=== PATIENT | female | born 1960 | race Caucasian/White ===

== ENCOUNTER 2016-02-18 08:49 | Emergency (ER) ==
[2016-02-18 08:53] VITALS: BP 127/88; TEMP 97.3; BMI 29.7
--- NOTE | 2016-02-18 08:55 | ED.PDOC ---
General ED Provider: Dr. ZULMA ARCHER JR Chief Complaint: Headache Stated Complaint: SPONTANEOUS FRONTAL HEADACHE WITH NAUSEA AND PHOTOPHOBIA patient c/o headache to frontal area. states it has made her nauseated. states does feel like sinuses are acting up.[End]since 2329 97.3 76 20 95% 127/ 88 07/19 SINCE 2329 Time Seen by Physician: 08:56 Mode of Arrival: Walk-In Information Source: Patient Exam Limitations: No limitations Primary Care Provider: LEONARDO IRVIN Nursing and Triage Documentation Reviewed and Agree: No Review of Systems - Review Of Systems Constitutional: Reports: Malaise Eyes: Reports: Photophobia Ears, Nose, Mouth, Throat: Reports: Nose pain (SINUS "FRONTAL PAIN") Respiratory: Reports: No symptoms Cardiac: Reports: No symptoms GI: Reports: No symptoms : Reports: No symptoms Musculoskeletal: Reports: No symptoms Skin: Reports: No symptoms Neurological: Reports: Headache Endocrine: Reports: No symptoms Hematologic/Lymphatic: Reports: No symptoms All Other Systems: Other Past Medical History - Past Medical History Endocrine: Reports: Hypothyroid, Dyslipidemia Cardiovascular: Reports: Unknown Respiratory: Reports: None Hematological: Reports: None Gastrointestinal: Reports: None Genitourinary: Reports: None 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) Musculoskeletal: Reports: None, Other (NEURONTIN NEEDED FOR LEG PAIN) Cancer: Reports: None - Surgical History General Surgical History: Reports: Tubal ligation - Family History Family History: Reports: Unknown - Social History Smoking Status: Current some day smoker Amount Smokes or Chewing Tobacco Used Daily: 1PK Q 3 D Hx Substance Use: No Alcohol Screening: Occasionally Physical Exam - Physical Exam Appearance: Well-appearing Pain Distress: Moderate Eyes: JOSE D, EOMI, Conjunctiva clear ENT: Nose normal (LEFT SEROUS EFFUSION LEFT FRONTAL TENDERNESS), Oropharynx normal Neck: Supple Respiratory: Airway patent, Breath sounds clear, Breath sounds equal, Respirations nonlabored Cardiovascular: RRR, Pulses normal, No rub, No murmur GI/: Soft, Nontender, No masses, Bowel sounds normal, No Organomegaly Musculoskeletal: Normal strength, ROM intact, No edema, No calf tenderness Skin: Warm, Dry, Normal color Neurological: Sensation intact, Motor intact, Reflexes intact, Cranial nerves intact, Alert, Oriented Psychiatric: Affect appropriate, Mood appropriate Interpretation - Radiology Interpretation Radiology Interpretation By: Radiologist Radiology Results: No acute changes Exam Interpreted: CT Scan (SINUSESW POSSIBLE RIGHT MASTOID EFFUSION//NORMAL CT HEAD) Re-Evaluation - Re-Evaluation Time of Re-Evaluation: 12:15 Status: Improved (pain resolved but worse when gets up) Critical Care Note - Critical Care Note Total Time (mins): 5 Course - Course Orders, Labs, Meds: Orders Category Date Time Status Morphine Sulfate [Morphine 4 mg/ml Syringe] MEDS 02/18/16 10:25 Discontinued 4 mg IM ONCE STA Promethazine HCl [Phenergan 25 mg/ml Vial] MEDS 02/18/16 10:25 Discontinued 25 mg IM ONCE STA Sumatriptan Succinate [Imitrex] MEDS 02/18/16 09:06 Discontinued [address] CT HEAD W/O CONTRAST Stat RADS 02/18/16 09:[address] MAXILLOFACIAL W/O CONTRAST Stat RADS 02/18/16 09:11 Completed Medications Discontinued Medications Generic Name Dose Route Start Last Admin Trade Name Freq PRN Reason Stop Dose Admin Morphine Sulfate 4 mg 02/18/16 10:25 02/18/16 10:50 Morphine 4 Mg/Ml Syringe IM 02/18/16 10:26 4 mg ONCE STA Administration Promethazine HCl 25 mg 02/18/16 10:25 02/18/16 10:51 Phenergan 25 Mg/Ml Vial IM 02/18/16 10:26 25 mg ONCE STA Administration Sumatriptan Succinate 6 mg 02/18/16 09:06 02/18/16 09:13 Imitrex SUBCUT 02/18/16 09:07 6 mg ONCE STA Administration Vital Signs: Temp Pulse Resp BP Pulse Ox 02/18/16 08:51 97.3 F L 76 20 127/88 95 Departure - Departure Time of Disposition: 12:15 Disposition: HOME SELF-CARE Discharge Problem: Headache Instructions: Acute Headache (ED) Condition: Good Pt referred to PMD for follow-up: Yes Additional Instructions: pain medication only as needed recheck PMD one week discuss headaches may take antihistamine daily with sinus congestion noted on CT increase fluids rest for one day retur if fever over 101.0 if symptoms worse Prescriptions: Hydrocodone Bit/Acetaminophen [[place]ing 5-325] 1 - 2 tab PO Q6HR PRN #12 tablet PRN Reason: pain Allergies/Adverse Reactions: Allergies Penicillins Adverse Reaction (Verified 02/18/16 08:54) Home Medications: Ambulatory Orders Venlafaxine HCl [Effexor] 75 mg PO DAILY 12/06/13 Gabapentin 300 mg PO BEDTIME 02/18/16 Hydrocodone Bit/Acetaminophen [Fielding 5-325] 1 - 2 tab PO Q6HR PRN #12 tablet 10/26 Levothyroxine Sodium [Synthroid] 50 mcg PO QDAC 02/18/16
[2016-02-18] MEDS ORDERED: IMITREX SUBCUT STA (09:06)
--- NOTE | 2016-02-18 10:04 | CT ---
EXAM: CT of the head without contrast History: Acute left sided headache. Technique: Multiplanar CT images through the head were obtained without the administration of IV co ntrast Findings: The visualized paranasal sinuses and left mastoid air cells are clear in general. Small right mastoid effusion. No acute calvarial abnormalities. Nasal septum is bowed to the left. Intracranially the ventricular and cisternal spaces are normal in size, shape and configuration for a patient of this age. No dominant mass or midline shift. No hydrocephalous. No acute intracrania l hemorrhage or abnormal extraaxial fluid collections. Impression: 1. No acute intracranial process. 2. Small right mastoid effusion.
--- NOTE | 2016-02-18 10:13 | CT ---
EXAM: CT sinuses/facial bones without contrast HISTORY: Headache and left frontal tenderness COMPARISON: Same day CT head TECHNIQUE: Serial axial images of the facial bones/sinuses were obtained without IV contrast. Thes e were viewed in coronal, sagittal and axial planes. FINDINGS: The mandible and pterygoid plates are intact. There is significant leftward nasal septal deviation with a 0.4 cm leftward nasal septal spur. There is mild scattered mucosal thickening in the paranasal sinuses with no CT evidence of acute sinusitis. Ostiomeatal units are patent bilatera lly. Nasal turbinates are unremarkable. There is no facial bone fracture or acute abnormality. Th ere is minimal scattered right mastoid fluid. The soft tissues are unremarkable. IMPRESSION: 1. No CT evidence of sinusitis with minimal mucosal thickening. 2. Ostiomeatal units are patent with significant leftward nasal septal deviation and nasal septal s pur. 3. No acute facial bone osseous abnormality. 4. Minimal scattered fluid in the right mastoid air cells.
[2016-02-18] MEDS ORDERED: PHENERGAN 25 MG/ML VIAL IM STA (10:25)
[2016-02-18] MEDS ORDERED: MORPHINE 4 MG/ML SYRINGE IM STA (10:25)
== END 2016-02-18 12:20 | disposition home or self-care (01) ==
LOC: ED 08:49
DX: R51 Headache (principal); F17.210 Nicotine dependence, cigarettes, uncomplicated
CPT/HCPCS: 96372; 99283

== ENCOUNTER 2017-06-15 15:19 | Outpatient (CLI) ==
--- NOTE | 2017-06-16 07:34 | DI ---
EXAM: Two views of the pelvis. History: Right hip pain. Findings: No acute fracture or dislocation. Degenerative disc disease within the lower lumbar spine . Mild narrowing of bilateral hip joints with tiny osteophytes. Impression: 1. No acute osseous abnormality. 2. Mild arthritis of bilateral hip joints
== END 2017-06-15 15:20 | disposition home or self-care (01) ==
LOC: RAD 15:19
PROVIDERS: ATTEND Family Medicine
DX: M25.551 Pain in right hip (principal)